=== PATIENT | female | born 1935 | race Caucasian/White ===

== ENCOUNTER 2017-12-04 16:05 | Inpatient (IN) | payer MEDICARE, BC ==
[~2017-12-04] VITALS: Ht 162.6 cm; Wt 76.7 kg
[2017-12-04 16:54] LABS: BASOPHILS % (AUTO) 0.5 % (0.0-2.0); EOSINOPHILS % (AUTO) 0.5 % (0.0-7.0); HEMATOCRIT 41.6 % (31.2-41.9); LYMPHOCYTES # (AUTO) 1.3 K/uL (20.0-40.0); LYMPHOCYTES % (AUTO) 16.6 % (20.5-51.5); MEAN CORPUSCULAR HEMOGLOBIN 30.5 uug (24.7-32.8); MEAN CORPUSCULAR HGB CONC 34 g/dL (32.3-35.6); MEAN CORPUSCULAR VOLUME 90.7 fL (75.5-95.3); MONOCYTES # (AUTO) 0.4 K/uL (2.0-10.0); MONOCYTES % (AUTO) 5.2 % (0.0-11.0); NEUTROPHILS # (AUTO) 6.2 K/uL (1.8-8.9); NEUTROPHILS % (AUTO) 77.2 % (38.5-71.5); PLATELET COUNT (AUTO) 220 K/uL (179-408); RED BLOOD CELL COUNT(AUTO) 4.59 MIL/uL (3.63-4.92); WHITE BLOOD COUNT (AUTO) 8.1 K/uL (3.8-11.8)
[2017-12-04 17:04] LABS: CARBON DIOXIDE 30 mmol/L (21-32); CHLORIDE 105 mmol/L (98-107); CREATININE 1.1 mg/dL (0.6-1.3); GLUCOSE 110 mg/dL (74-106); POTASSIUM 3.7 mmol/L (3.5-5.1); UREA NITROGEN, BLOOD 19 mg/dL (7-18)
[2017-12-04 17:12] LABS: ETHANOL < 3 MG/DL (0-0)
[2017-12-04 17:13] LABS: ALANINE AMINOTRANSFERASE 23 U/L (14-59); ALKALINE PHOSPHATASE 92 U/L (50-136); ASPARTATE AMINOTRANSFERASE 20 U/L (15-37); BILIRUBIN,DIRECT 0.1 mg/dL (0.0-0.2); BILIRUBIN,TOTAL 0.5 mg/dL (0.2-1.0); TOTAL PROTEIN, SERUM 7.7 g/dL (6.4-8.2)
[2017-12-04 17:16] LABS: ACETAMINOPHEN < 2.0 ug/mL (10-30)
[2017-12-04 17:18] LABS: THYROID STIMULATING HORMONE 1.306 mIU/mL (0.358-3.740)
[2017-12-04] MEDS ORDERED: diphenhydrAMINE 50 MG/1 ML VIAL IM ONE (17:30)
[2017-12-04] MEDS ORDERED: HALOPERIDOL LACTATE 5 MG/1 ML VIAL IM ONE (17:30)
[2017-12-04] MEDS ORDERED: LORAZEPAM 2 MG/1 ML VIAL IM ONE (17:30)
[2017-12-04] MEDS ORDERED: MAGNESIUM HYDROXIDE 30 ML LIQUID UDC PO PRN (18:45)
[2017-12-04] MEDS ORDERED: LORAZEPAM 0.5 MG TABLET PO PRN (18:45)
[2017-12-04] MEDS ORDERED: MAG HYDROX/AL HYDROX/SIMETH 30 ML LIQUID UDC PO PRN (18:45)
[2017-12-04] MEDS ORDERED: ACETAMINOPHEN 325 MG TABLET PO PRN (18:45)
[2017-12-04] MEDS ORDERED: OLANZAPINE 10 MG VIAL IM ONE (21:00)
[2017-12-04] MEDS: CLONIDINE-TTS 1 PATCH TD SCH (22:09)
[2017-12-04] MEDS ORDERED: CLONIDINE-TTS 1 PATCH TD ONE (22:22)
[2017-12-04 23:43] LABS: *BILIRUBIN,URIN NEGATIVE (NEGATIVE); *BLOOD, URINE 2+ (NEGATIVE); *CLARITY,URINE CLOUDY (CLEAR); *COLOR,URINE YELLOW (YELLOW); *KETONES,URINE NEGATIVE (NEGATIVE); *PROTEIN,URINE TRACE (NEGATIVE); *UROBILINOGEN,URINE 0.2 E.U./dl (NORMAL); LEUKOCYTE ESTERASE ,URINE 2+ (NEGATIVE); NITRITE, URINE POSITIVE (NEGATIVE); PH,URINE 6.5 (5.0-8.0); UGLUCOSE NEGATIVE (NEGATIVE)
[2017-12-04 23:46] LABS: RBC,URINE 20-50 /HPF (0-3)
[2017-12-04 23:47] LABS: BACTERIA,URINE MANY /HPF (NONE SEEN); SQUAMOUS EPITHELIAL CELL,UR FEW /HPF (NONE SEEN); WBC,URINE 80-100 /HPF (0-3)
[2017-12-04 23:52] LABS: *AMPHETAMINE, URINE NEGATIVE (NEGATIVE); *BARBITURATE, URINE NEGATIVE (NEGATIVE); *CANNABINOID, URINE NEGATIVE (NEGATIVE); *COCCAINE, URINE NEGATIVE (NEGATIVE); *OPIATE, URINE NEGATIVE (NEGATIVE); *PHENCYCLIDINE SCREEN,URINE NEGATIVE (NEGATIVE)
[2017-12-05] MEDS: TEMAZEPAM 7.5 MG CAPSULE PO PRN ×2 (00:56→22:31)
[2017-12-05] MEDS ORDERED: TEMAZEPAM 7.5 MG CAPSULE ONE (01:00)
[2017-12-05 08:00] VITALS: BP 155/60
[2017-12-05] MEDS: SULFAMETH/TRIMETH 800/160 MG TABLET PO SCH ×2 (11:17→20:15)
[2017-12-05] MEDS: DIVALPROEX SPRINKLE 125 MG CAP.SPRINK PO SCH ×2 (12:22→20:15)
[2017-12-05] MEDS: LORAZEPAM 0.5 MG TABLET PO PRN (13:30)
[2017-12-05] MEDS ORDERED: MELO-107 PO (14:39)
[2017-12-05] MEDS ORDERED: FURO-152 PO (14:39)
[2017-12-05] MEDS ORDERED: GABA300C PO (14:39)
[2017-12-05] MEDS ORDERED: LISI-607 PO (14:39)
[2017-12-05 16:00] VITALS: BP 136/73
[2017-12-05] MEDS: OLANZAPINE ZYDIS 5 MG TAB.RAPDIS PO SCH (17:03)
[2017-12-05 20:22] VITALS: BP 163/73
[2017-12-06] MEDS: LORAZEPAM 0.5 MG TABLET PO PRN (00:28)
[2017-12-06] MEDS: DIVALPROEX SPRINKLE 125 MG CAP.SPRINK PO SCH ×3 (09:00→20:04)
[2017-12-06] MEDS: OLANZAPINE ZYDIS 5 MG TAB.RAPDIS PO SCH ×3 (09:00→20:04)
[2017-12-06] MEDS: SULFAMETH/TRIMETH 800/160 MG TABLET PO SCH ×3 (09:00→20:04)
[2017-12-06 20:00] VITALS: BP 139/61
[2017-12-07] MEDS: TEMAZEPAM 7.5 MG CAPSULE PO PRN (00:54)
[2017-12-07 07:30] VITALS: BP 157/62
[2017-12-07] MEDS ORDERED: Medication Not On Formulary EA (Meloxicam 15 MG) PO SCH (09:00)
[2017-12-07] MEDS: LISINOPRIL 5 MG TABLET PO SCH (09:32)
[2017-12-07] MEDS: DIVALPROEX SPRINKLE 125 MG CAP.SPRINK PO SCH ×2 (09:34→20:04)
[2017-12-07] MEDS: SULFAMETH/TRIMETH 800/160 MG TABLET PO SCH ×2 (09:34→20:04)
[2017-12-07] MEDS: OLANZAPINE ZYDIS 5 MG TAB.RAPDIS PO SCH ×2 (09:34→20:03)
[2017-12-07] MEDS: FUROSEMIDE 20 MG TABLET PO SCH (09:35)
[2017-12-07] MEDS: MELOXICAM 7.5 MG TABLET PO SCH (09:39)
[2017-12-07 15:00] VITALS: BP 121/61
[2017-12-07] MEDS: GABAPENTIN 300 MG CAPSULE PO SCH (17:32)
[2017-12-07] MEDS: LORAZEPAM 0.5 MG TABLET PO PRN (20:04)
[2017-12-07 20:21] VITALS: BP 152/56
[2017-12-08 07:30] VITALS: BP 146/45
[2017-12-08] MEDS: SULFAMETH/TRIMETH 800/160 MG TABLET PO SCH ×2 (08:34→22:22)
[2017-12-08] MEDS: GABAPENTIN 300 MG CAPSULE PO SCH (08:34)
[2017-12-08] MEDS: DIVALPROEX SPRINKLE 125 MG CAP.SPRINK PO SCH ×2 (08:35→22:22)
[2017-12-08] MEDS: OLANZAPINE ZYDIS 5 MG TAB.RAPDIS PO SCH ×2 (08:35→22:23)
[2017-12-08] MEDS: FUROSEMIDE 20 MG TABLET PO SCH (08:35)
[2017-12-08] MEDS: LISINOPRIL 5 MG TABLET PO SCH (08:35)
[2017-12-08] MEDS: MELOXICAM 7.5 MG TABLET PO SCH (08:36)
[2017-12-08 15:27] VITALS: BP 95/46
[2017-12-08 20:55] VITALS: BP 119/43
[2017-12-09 07:30] VITALS: BP 137/51
[2017-12-09] MEDS: DIVALPROEX SPRINKLE 125 MG CAP.SPRINK PO SCH ×2 (08:02→17:00)
[2017-12-09] MEDS: GABAPENTIN 300 MG CAPSULE PO SCH (08:02)
[2017-12-09] MEDS: MELOXICAM 7.5 MG TABLET PO SCH (08:03)
[2017-12-09] MEDS: FUROSEMIDE 20 MG TABLET PO SCH (08:03)
[2017-12-09] MEDS: LISINOPRIL 5 MG TABLET PO SCH (08:03)
[2017-12-09] MEDS: SULFAMETH/TRIMETH 800/160 MG TABLET PO SCH ×2 (08:03→21:27)
[2017-12-09] MEDS: OLANZAPINE ZYDIS 5 MG TAB.RAPDIS PO SCH ×2 (08:03→21:27)
[2017-12-09] MEDS: LORAZEPAM 0.5 MG TABLET PO PRN (13:55)
[2017-12-09 15:36] VITALS: BP 95/45
[2017-12-09 20:41] VITALS: BP 189/96
[2017-12-09 21:30] VITALS: BP 150/68
[2017-12-09 21:40] VITALS: BP 150/68
[2017-12-10 07:30] VITALS: BP 164/54
[2017-12-10] MEDS: DIVALPROEX SPRINKLE 125 MG CAP.SPRINK PO SCH ×3 (08:49→16:51)
[2017-12-10] MEDS: MELOXICAM 7.5 MG TABLET PO SCH (08:50)
[2017-12-10] MEDS: GABAPENTIN 300 MG CAPSULE PO SCH (08:50)
[2017-12-10] MEDS: LISINOPRIL 5 MG TABLET PO SCH (08:50)
[2017-12-10] MEDS: FUROSEMIDE 20 MG TABLET PO SCH (08:51)
[2017-12-10] MEDS: SULFAMETH/TRIMETH 800/160 MG TABLET PO SCH ×2 (08:51→20:04)
[2017-12-10] MEDS: OLANZAPINE 2.5 MG TABLET PO SCH ×3 (08:58→20:04)
[2017-12-10] MEDS ORDERED: OLANZAPINE ZYDIS 5 MG TAB.RAPDIS PO SCH ×2 (09:00→21:00)
[2017-12-10 15:29] VITALS: BP 104/45
[2017-12-10] MEDS: LORAZEPAM 0.5 MG TABLET PO PRN (15:42)
[2017-12-10 20:43] VITALS: BP 129/55
[2017-12-11 07:07] LABS: BASOPHILS % (AUTO) 0.5 % (0.0-2.0); EOSINOPHILS # (AUTO) 0.2 K/uL (0.0-0.7); EOSINOPHILS % (AUTO) 2.4 % (0.0-7.0); HEMATOCRIT 41.6 % (31.2-41.9); HEMOGLOBIN 14.1 g/dL (10.9-14.3); LYMPHOCYTES # (AUTO) 1.6 K/uL (20.0-40.0); LYMPHOCYTES % (AUTO) 20.1 % (20.5-51.5); MEAN CORPUSCULAR HEMOGLOBIN 30.5 uug (24.7-32.8); MEAN CORPUSCULAR HGB CONC 34 g/dL (32.3-35.6); MEAN CORPUSCULAR VOLUME 90.3 fL (75.5-95.3); MONOCYTES # (AUTO) 0.5 K/uL (2.0-10.0); MONOCYTES % (AUTO) 5.8 % (0.0-11.0); NEUTROPHILS # (AUTO) 5.7 K/uL (1.8-8.9); NEUTROPHILS % (AUTO) 71.2 % (38.5-71.5); PLATELET COUNT (AUTO) 193 K/uL (179-408); RED BLOOD CELL COUNT(AUTO) 4.61 MIL/uL (3.63-4.92)
[2017-12-11 07:30] VITALS: BP 163/66
[2017-12-11 08:01] LABS: ALANINE AMINOTRANSFERASE 31 U/L (14-59); ALKALINE PHOSPHATASE 78 U/L (50-136); ASPARTATE AMINOTRANSFERASE 37 U/L (15-37); BILIRUBIN,TOTAL 0.4 mg/dL (0.2-1.0); CARBON DIOXIDE 29 mmol/L (21-32); CHLORIDE 108 mmol/L (98-107); CREATININE 1.5 mg/dL (0.6-1.3); GLUCOSE 116 mg/dL (74-106); MAGNESIUM 2.3 mg/dL (1.8-2.4); PHOSPHOROUS 3.7 mg/dL (2.5-4.9); TOTAL PROTEIN, SERUM 7.2 g/dL (6.4-8.2); UREA NITROGEN, BLOOD 46 mg/dL (7-18)
[2017-12-11] MEDS: DIVALPROEX SPRINKLE 125 MG CAP.SPRINK PO SCH ×3 (09:06→17:58)
[2017-12-11] MEDS: LORAZEPAM 0.5 MG TABLET PO PRN (09:07)
[2017-12-11] MEDS: LISINOPRIL 5 MG TABLET PO SCH (09:07)
[2017-12-11] MEDS: FUROSEMIDE 20 MG TABLET PO SCH (09:07)
[2017-12-11] MEDS: GABAPENTIN 300 MG CAPSULE PO SCH (09:07)
[2017-12-11] MEDS: OLANZAPINE 2.5 MG TABLET PO SCH ×3 (09:07→21:00)
[2017-12-11] MEDS: MELOXICAM 7.5 MG TABLET PO SCH (09:07)
[2017-12-11] MEDS ORDERED: CLONIDINE HCL 0.1 MG TABLET PO PRN (10:00)
[2017-12-11 16:49] VITALS: BP 119/56
[2017-12-11 20:00] VITALS: BP 110/59
[2017-12-11] MEDS: CLONIDINE-TTS 1 PATCH TD SCH (22:00)
[2017-12-12] MEDS: CLONIDINE-TTS 1 PATCH TD SCH (06:27)
[2017-12-12] MEDS ORDERED: Z GUARD REMEDY PASTE 57 GM TUBE TOP PRN (07:45)
[2017-12-12 08:00] VITALS: BP 124/46
[2017-12-12 08:52] LABS: CARBON DIOXIDE 24 mmol/L (21-32); CHLORIDE 109 mmol/L (98-107); CREATININE 2.8 mg/dL (0.6-1.3); GLUCOSE 103 mg/dL (74-106); POTASSIUM 5.1 mmol/L (3.5-5.1); UREA NITROGEN, BLOOD 68 mg/dL (7-18)
[2017-12-12] MEDS: MELOXICAM 7.5 MG TABLET PO SCH (09:34)
[2017-12-12] MEDS: LISINOPRIL 5 MG TABLET PO SCH (09:35)
[2017-12-12] MEDS: FUROSEMIDE 20 MG TABLET PO SCH (09:35)
[2017-12-12] MEDS: GABAPENTIN 300 MG CAPSULE PO SCH (09:35)
[2017-12-12] MEDS: OLANZAPINE 2.5 MG TABLET PO SCH ×3 (09:35→21:04)
[2017-12-12] MEDS: DIVALPROEX SPRINKLE 125 MG CAP.SPRINK PO SCH ×2 (09:36→17:29)
[2017-12-12] MEDS: Z GUARD REMEDY PASTE 57 GM TUBE TOP SCH ×2 (09:42→21:11)
[2017-12-12] MEDS ORDERED: IV 1/2NS 1000 ML 1,000 ML IV PRN (11:15)
[2017-12-12 16:00] VITALS: BP 101/36
[2017-12-12 20:38] VITALS: BP 113/55
[2017-12-13 07:30] VITALS: BP 100/42
[2017-12-13 07:54] LABS: *BILIRUBIN,URIN NEGATIVE (NEGATIVE); *BLOOD, URINE Trace-intact (NEGATIVE); *CLARITY,URINE SLIGHTLY CLOUDY (CLEAR); *COLOR,URINE YELLOW (YELLOW); *KETONES,URINE NEGATIVE (NEGATIVE); *PROTEIN,URINE NEGATIVE (NEGATIVE); *UROBILINOGEN,URINE 0.2 E.U./dl (NORMAL); LEUKOCYTE ESTERASE ,URINE NEGATIVE (NEGATIVE); NITRITE, URINE NEGATIVE (NEGATIVE); PH,URINE 5.5 (5.0-8.0); UGLUCOSE NEGATIVE (NEGATIVE)
[2017-12-13 07:57] LABS: BASOPHILS # (AUTO) 0.1 K/uL (0.0-8.0); BASOPHILS % (AUTO) 0.5 % (0.0-2.0); EOSINOPHILS # (AUTO) 0.1 K/uL (0.0-0.7); EOSINOPHILS % (AUTO) 1.1 % (0.0-7.0); LYMPHOCYTES % (AUTO) 16.4 % (20.5-51.5); MEAN CORPUSCULAR HGB CONC 33 g/dL (32.3-35.6); MONOCYTES # (AUTO) 0.8 K/uL (2.0-10.0); MONOCYTES % (AUTO) 6.8 % (0.0-11.0); NEUTROPHILS # (AUTO) 9.1 K/uL (1.8-8.9); NEUTROPHILS % (AUTO) 75.2 % (38.5-71.5); RED BLOOD CELL COUNT(AUTO) 4.14 MIL/uL (3.63-4.92)
[2017-12-13 08:10] LABS: WHITE BLOOD COUNT (AUTO) 12.1 K/uL (3.8-11.8)
[2017-12-13 08:11] LABS: HEMATOCRIT 37.2 % (31.2-41.9); HEMOGLOBIN 12.4 g/dL (10.9-14.3); PLATELET COUNT (AUTO) 142 K/uL (179-408)
[2017-12-13 08:14] LABS: ALANINE AMINOTRANSFERASE 51 U/L (14-59); ALKALINE PHOSPHATASE 64 U/L (50-136); ASPARTATE AMINOTRANSFERASE 109 U/L (15-37); BILIRUBIN,TOTAL 0.6 mg/dL (0.2-1.0); CARBON DIOXIDE 26 mmol/L (21-32); CHLORIDE 107 mmol/L (98-107); CREATININE 2.8 mg/dL (0.6-1.3); GLUCOSE 107 mg/dL (74-106); MAGNESIUM 2.7 mg/dL (1.8-2.4); PHOSPHOROUS 4.2 mg/dL (2.5-4.9); POTASSIUM 4.9 mmol/L (3.5-5.1); TOTAL PROTEIN, SERUM 6.1 g/dL (6.4-8.2)
[2017-12-13 08:45] LABS: CREATINE KINASE, TOTAL > 1000 U/L (26-192); UREA NITROGEN, BLOOD 88 mg/dL (7-18)
[2017-12-13] MEDS ORDERED: LEVOFLOXACIN/D5W 250 MG in PREMIX 1 EA IV ONE (09:00)
[2017-12-13 09:36] LABS: BACTERIA,URINE NONE SEEN /HPF (NONE SEEN); SQUAMOUS EPITHELIAL CELL,UR MODERATE /HPF (NONE SEEN); URIC ACID CRYSTALS,URINE MANY /HPF (NONE SEEN)
[2017-12-13 09:37] LABS: MUCUS,URINE FEW /LPF (0-FEW)
[2017-12-13] MEDS: GABAPENTIN 300 MG CAPSULE PO SCH (09:51)
[2017-12-13] MEDS: OLANZAPINE 2.5 MG TABLET PO SCH (09:51)
[2017-12-13] MEDS: FUROSEMIDE 20 MG TABLET PO SCH (09:51)
[2017-12-13] MEDS: Z GUARD REMEDY PASTE 57 GM TUBE TOP SCH (09:52)
[2017-12-13] MEDS: DIVALPROEX SPRINKLE 125 MG CAP.SPRINK PO SCH (09:56)
[2017-12-13] MEDS ORDERED: HEPARIN SODIUM,PORCINE 5,000 UNITS/ML VIAL SQ SCH (11:15)
[2017-12-13] MEDS ORDERED: IV NS 1000 ML 1,000 ML IV PRN (11:15)
[2017-12-13] MEDS ORDERED: CEFTRIAXONE 1 G in IV NORMAL SALINE 50 ML IV SCH (12:00)
[2017-12-13] MEDS ORDERED: HEPA100D33 SQ (17:23)
[2017-12-13] MEDS ORDERED: MAGN400O6 PO (17:23)
[2017-12-13] MEDS ORDERED: GABA-534 PO (17:23)
[2017-12-13] MEDS ORDERED: CLON-418 PO (17:23)
[2017-12-13] MEDS ORDERED: DIVA250T6 PO (17:23)
[2017-12-13] MEDS ORDERED: PETR113P TP (17:23)
[2017-12-13] MEDS ORDERED: TEMA7.5C PO (17:23)
[2017-12-13] MEDS ORDERED: MAG-55 PO (17:23)
[2017-12-13] MEDS ORDERED: LORA-259 PO (17:23)
[2017-12-13] MEDS ORDERED: OLAN2.5T3 PO ×2 (17:23)
[2017-12-15] MEDS ORDERED: LEVOFLOXACIN 250MG /D5W 250 MG in PREMIXED 1 EACH IV SCH (09:00)
[2017-12-17 05:06] LABS: ALBUMIN 2.8 g/dL (2.9-4.4); ALPHA-1-GLOBULIN 0.3 g/dL (0.0-0.4); ALPHA-2-GLOBULIN 0.9 g/dL (0.4-1.0); BETA GLOBULIN 0.9 g/dL (0.7-1.3); GAMMA GLOBULIN 0.7 g/dL (0.4-1.8); GLOBULIN, TOTAL 2.7 g/dL (2.2-3.9); M-SPIKE Not Observed g/dL (Not Observed)
== END 2017-12-13 14:00 | disposition short-term general hospital (02) | DRG 885 ==
LOC: ER 16:06 → GPS 17:32
PROVIDERS: ADMIT Psychiatry & Neurology Psychiatry; ATTEND Nurse Practitioner Acute Care
DX: F23 Brief psychotic disorder (principal); F02.81 Dementia in other diseases classified elsewhere, unspecified severity, with behavioral disturbance; I11.0 Hypertensive heart disease with heart failure; N17.0 Acute kidney failure with tubular necrosis; G93.41 Metabolic encephalopathy; E44.0 Moderate protein-calorie malnutrition; D69.6 Thrombocytopenia, unspecified; E83.41 Hypermagnesemia; I50.32 Chronic diastolic (congestive) heart failure; I82.441 Acute embolism and thrombosis of right tibial vein; N39.0 Urinary tract infection, site not specified; M62.82 Rhabdomyolysis; J98.11 Atelectasis; E86.0 Dehydration; B96.1 Klebsiella pneumoniae [K. pneumoniae] as the cause of diseases classified elsewhere; G31.83 Neurocognitive disorder with Lewy bodies; Z79.899 Other long term (current) drug therapy; T39.395A Adverse effect of other nonsteroidal anti-inflammatory drugs [NSAID], initial encounter; T46.4X5A Adverse effect of angiotensin-converting-enzyme inhibitors, initial encounter; Y92.009 Unspecified place in unspecified non-institutional (private) residence as the place of occurrence of the external cause; Z68.29 Body mass index [BMI] 29.0-29.9, adult; E66.9 Obesity, unspecified
CPT/HCPCS: 36415; 70030-TC; 71045; 76770; 80164; 80307; 83605; 83735; 83970; 84100; 84155; 84165; 84443; 85025; 85730; 87040; 87077; 87086; 93005; 97110; 97116; A4663; G0480; G0480-TC; J0696; J1956; J2358; J3490; J7030

== ENCOUNTER 2017-12-13 15:58 | Inpatient (IN) | payer MEDICARE, BC ==
[~2017-12-13] VITALS: Ht 162.6 cm; Wt 76.7 kg
--- NOTE | 2017-12-13 14:00 | NUR ---
pt received from u. report received. pt sleeping interminently. no signs of pain nor distress. no injuries noted. signs confusion seen when awake. all pertinent assessments done. belongings list reconciled. iv site intact. awaiting designer/writer orders.
[~2017-12-13 15:58] MED LIST: FURO-152 PO; GABA300C PO; LISI-607 PO; MELO-107 PO
[2017-12-13 16:04] VITALS: BP 98/44
[2017-12-13] MEDS ORDERED: ONDANSETRON 4 MG/2 ML VIAL IV PRN (17:00)
[2017-12-13] MEDS ORDERED: Z GUARD REMEDY PASTE 57 GM TUBE TOP PRN (17:00)
[2017-12-13] MEDS ORDERED: MAGNESIUM HYDROXIDE 30 ML LIQUID UDC PO PRN (17:00)
[2017-12-13] MEDS ORDERED: ACETAMINOPHEN 325 MG TABLET PO PRN (17:00)
[2017-12-13] MEDS ORDERED: DIVA250T6 PO (17:23)
[2017-12-13] MEDS ORDERED: MAG-55 PO (17:23)
[2017-12-13] MEDS ORDERED: OLAN2.5T3 PO ×2 (17:23)
[2017-12-13] MEDS ORDERED: MAGN400O6 PO (17:23)
[2017-12-13] MEDS ORDERED: HEPA100D33 SQ (17:23)
[2017-12-13] MEDS ORDERED: TEMA7.5C PO (17:23)
[2017-12-13] MEDS ORDERED: PETR113P TP (17:23)
[2017-12-13] MEDS ORDERED: CLON-418 PO (17:23)
[2017-12-13] MEDS ORDERED: LORA-259 PO (17:23)
[2017-12-13] MEDS ORDERED: GABA-534 PO (17:23)
[2017-12-13] MEDS: IV NS 1000 ML 1,000 ML IV PRN (18:23)
[2017-12-13] MEDS: APIXABAN 5 MG TABLET PO SCH (18:41)
[2017-12-13] MEDS: CEFTRIAXONE 1 G in IV DEXTROSE 5% 50 ML IV SCH (18:44)
--- NOTE | 2017-12-13 18:52 | NUR ---
pt stable throuhgout the day. vitals stable. no complaints of pain. pt continues to sleep interminently . iv site intact running fluids and antibiotics. eliquis given. will endorse to scene shifter nurse.
[2017-12-13] MEDS ORDERED: TEMAZEPAM 7.5 MG CAPSULE PO PRN (19:45)
[2017-12-13 20:00] VITALS: BP_SYST 120; BP_SYST 130; BP_DIAS 48; BP_DIAS 68
--- NOTE | 2017-12-13 20:00 | NUR ---
RECEIVED PT AWAKE IN BED, SHE'S ALERT WITH CONFUSION AND UNABLE TO STATE HER NEEDS. NO S/S OF PAIN OR DISCOMFORT. IV FLUIDS INFUSING ORDERED. ALL SAFETY MEASURES IN PLACE, CALL LIGHT PLACED WITHIN PT'S REACH. WILL CONTINUE TO MONITOR PT
[2017-12-13] MEDS: OLANZAPINE 2.5 MG TABLET PO SCH (21:01)
[2017-12-14 04:00] VITALS: BP 132/58
[2017-12-14 06:39] LABS: BASOPHILS # (AUTO) 0.1 K/uL (0.0-8.0); BASOPHILS % (AUTO) 0.6 % (0.0-2.0); EOSINOPHILS # (AUTO) 0.3 K/uL (0.0-0.7); EOSINOPHILS % (AUTO) 3.3 % (0.0-7.0); HEMATOCRIT 38.4 % (31.2-41.9); HEMOGLOBIN 12.8 g/dL (10.9-14.3); LYMPHOCYTES # (AUTO) 1.7 K/uL (20.0-40.0); LYMPHOCYTES % (AUTO) 19.3 % (20.5-51.5); MEAN CORPUSCULAR HEMOGLOBIN 30.2 uug (24.7-32.8); MEAN CORPUSCULAR HGB CONC 34 g/dL (32.3-35.6); MEAN CORPUSCULAR VOLUME 90.1 fL (75.5-95.3); MONOCYTES # (AUTO) 0.6 K/uL (2.0-10.0); MONOCYTES % (AUTO) 6.6 % (0.0-11.0); NEUTROPHILS # (AUTO) 6.1 K/uL (1.8-8.9); NEUTROPHILS % (AUTO) 70.2 % (38.5-71.5); PLATELET COUNT (AUTO) 147 K/uL (179-408); RED BLOOD CELL COUNT(AUTO) 4.26 MIL/uL (3.63-4.92); WHITE BLOOD COUNT (AUTO) 8.7 K/uL (3.8-11.8)
--- NOTE | 2017-12-14 06:46 | NUR ---
PT IS ASLEEP WITH NO S/S OF PAIN OR DISCOMFORT.PT IS CONFUSED SHE PULLED OUT HER IV, NEW IV WAS INSERTED PATENT AND INTACT RUNNING FLUIDS PER MD ORDERS. SHE SLEPT WELL THROUGH NIGHT
[2017-12-14 07:34] LABS: ALANINE AMINOTRANSFERASE 45 U/L (14-59); ALKALINE PHOSPHATASE 67 U/L (50-136); ASPARTATE AMINOTRANSFERASE 70 U/L (15-37); BILIRUBIN,TOTAL 0.4 mg/dL (0.2-1.0); CARBON DIOXIDE 26 mmol/L (21-32); CHLORIDE 109 mmol/L (98-107); CHOLESTEROL 166 mg/dL (<200); CREATININE 1.8 mg/dL (0.6-1.3); GLUCOSE 96 mg/dL (74-106); HDL CHOLESTEROL 49 mg/dL (40-60); MAGNESIUM 2.7 mg/dL (1.8-2.4); PHOSPHOROUS 3.8 mg/dL (2.5-4.9); POTASSIUM 4.7 mmol/L (3.5-5.1); TOTAL PROTEIN, SERUM 6.5 g/dL (6.4-8.2); TRIGLYCERIDES 126 MG/DL (30-150)
[2017-12-14 07:41] LABS: UREA NITROGEN, BLOOD 84 mg/dL (7-18)
--- NOTE | 2017-12-14 08:00 | NUR ---
AWAKE ALERT BUT VERY CONFUSED AND INCOHERENT, REQUIRES CONSTANT SUPERVISION FOR SAFETY
[2017-12-14] MEDS: GABAPENTIN 300 MG CAPSULE PO SCH (08:35)
[2017-12-14] MEDS: OLANZAPINE 2.5 MG TABLET PO SCH ×3 (08:36→20:11)
[2017-12-14] MEDS: DIVALPROEX 250 MG TABLET.DR PO SCH ×2 (08:36→17:04)
[2017-12-14] MEDS: APIXABAN 5 MG TABLET PO SCH ×2 (08:38→17:05)
[2017-12-14] MEDS ORDERED: GABAPENTIN 300 MG CAPSULE PO SCH (09:00)
[2017-12-14] MEDS ORDERED: FUROSEMIDE 20 MG TABLET PO SCH (09:00)
--- NOTE | 2017-12-14 09:30 | NUR ---
SEEN BY DR BUCIO FOR PSYCH FOLLOW-UP SEE NOTES
[2017-12-14] MEDS: IV NS 1000 ML 1,000 ML IV PRN (10:23)
[2017-12-14 10:49] VITALS: BP 145/64
--- NOTE | 2017-12-14 12:43 | NUR ---
SEEN BY DR SALAMANCA FOR MEDICAL FOLLOW-UP SEE NOTES. CLOSELY MONITORED FOR CONFUSION/SAFETY
[2017-12-14 15:06] VITALS: BP 155/60
--- NOTE | 2017-12-14 15:11 | NUR ---
2DECHO DONE WITH EF OF 60
[2017-12-14] MEDS: CEFTRIAXONE 1 G in IV DEXTROSE 5% 50 ML IV SCH (17:03)
[2017-12-14 19:00] VITALS: BP 155/53
--- NOTE | 2017-12-14 19:45 | NUR ---
RECEIVED PATIENT AWAKE. PATIENT PULLED OUT IV HEPLOCK. ALERT TO SELF ONLY. CONFUSED AND DISORIENTED BUT PLEASANT WHEN APPROACHED. UNAWARE OF PULLING OUT IV, UNABLE TO COMPREHEND. PATIENT DENIES PAIN OR DISCOMFORT. NO RESP. DISTRESS NOTED. BP 155/53. ALL OTHER VSS. WILL RECHECK AND MONITOR BP. BED ALARM ON. CALL LIGHT IN REACH. ALL NEEDS ATTENDED. WILL CONTINUE TO MONITOR.
[2017-12-14] MEDS: LORAZEPAM 1 MG TABLET PO PRN (20:12)
[2017-12-14 22:15] VITALS: BP 135/64
[2017-12-15 04:00] VITALS: BP 144/56
[2017-12-15] MEDS: IV NS 1000 ML 1,000 ML IV PRN ×2 (05:48→22:37)
--- NOTE | 2017-12-15 06:53 | NUR ---
PATIENT ASLEEP IN BED. SLEPT AT INTERVALS. IVF INFUSING WELL TO LEFT AC #20 GAUGE. VSS. NO S/S OF PAIN OR DISCOMFORT. NO RESP. DISTRESS NOTED. BED ALARM ON. CALL LIGHT IN REACH. ALL NEEDS ATTENDED. WILL CONTINUE TO MONITOR AND ASSESS.
[2017-12-15 07:22] LABS: BASOPHILS % (AUTO) 0.6 % (0.0-2.0); EOSINOPHILS # (AUTO) 0.2 K/uL (0.0-0.7); EOSINOPHILS % (AUTO) 2.4 % (0.0-7.0); HEMATOCRIT 39.5 % (31.2-41.9); HEMOGLOBIN 13.2 g/dL (10.9-14.3); LYMPHOCYTES # (AUTO) 1.2 K/uL (20.0-40.0); LYMPHOCYTES % (AUTO) 14.9 % (20.5-51.5); MEAN CORPUSCULAR HEMOGLOBIN 30.2 uug (24.7-32.8); MEAN CORPUSCULAR HGB CONC 34 g/dL (32.3-35.6); MEAN CORPUSCULAR VOLUME 90.2 fL (75.5-95.3); MONOCYTES # (AUTO) 0.5 K/uL (2.0-10.0); MONOCYTES % (AUTO) 6.4 % (0.0-11.0); NEUTROPHILS # (AUTO) 5.9 K/uL (1.8-8.9); NEUTROPHILS % (AUTO) 75.7 % (38.5-71.5); PLATELET COUNT (AUTO) 153 K/uL (179-408); RED BLOOD CELL COUNT(AUTO) 4.38 MIL/uL (3.63-4.92); WHITE BLOOD COUNT (AUTO) 7.9 K/uL (3.8-11.8)
[2017-12-15 07:35] LABS: ALANINE AMINOTRANSFERASE 47 U/L (14-59); ALKALINE PHOSPHATASE 74 U/L (50-136); ASPARTATE AMINOTRANSFERASE 71 U/L (15-37); BILIRUBIN,TOTAL 0.5 mg/dL (0.2-1.0); CARBON DIOXIDE 32 mmol/L (21-32); CHLORIDE 107 mmol/L (98-107); CREATININE 1.1 mg/dL (0.6-1.3); GLUCOSE 96 mg/dL (74-106); MAGNESIUM 2.4 mg/dL (1.8-2.4); POTASSIUM 4.4 mmol/L (3.5-5.1); TOTAL PROTEIN, SERUM 6.8 g/dL (6.4-8.2); UREA NITROGEN, BLOOD 44 mg/dL (7-18)
[2017-12-15] MEDS: DIVALPROEX 250 MG TABLET.DR PO SCH ×2 (08:11→17:36)
[2017-12-15] MEDS: GABAPENTIN 300 MG CAPSULE PO SCH (08:11)
[2017-12-15] MEDS: APIXABAN 5 MG TABLET PO SCH ×2 (08:11→17:37)
[2017-12-15] MEDS: OLANZAPINE 2.5 MG TABLET PO SCH ×3 (08:12→20:53)
[2017-12-15 08:16] LABS: CREATINE KINASE, TOTAL 2294 U/L (26-192)
--- NOTE | 2017-12-15 10:20 | NUR ---
Patient pulled out IV.
[2017-12-15 10:59] VITALS: BP 157/60
--- NOTE | 2017-12-15 11:00 | NUR ---
Midline insertion done. Patient tolerated procedure well.
[2017-12-15 15:04] VITALS: BP 141/54
--- NOTE | 2017-12-15 15:15 | NUR ---
Patient is agitated, refusing patient care, combative, screaming, pulling iv. Will administer PRN medication and call MD.
[2017-12-15] MEDS: LORAZEPAM 1 MG TABLET PO PRN (15:22)
[2017-12-15] MEDS: PANTOPRAZOLE SODIUM 40 MG TABLET.DR PO SCH (15:22)
[2017-12-15] MEDS: AMLODIPINE 5 MG TABLET PO SCH (15:23)
[2017-12-15] MEDS ORDERED: diphenhydrAMINE 50 MG/1 ML VIAL IM ONE (16:15)
[2017-12-15] MEDS ORDERED: HALOPERIDOL LACTATE 5 MG/1 ML VIAL IM ONE (16:15)
[2017-12-15] MEDS ORDERED: LORAZEPAM 2 MG/1 ML VIAL IM ONE (16:15)
[2017-12-15 19:00] VITALS: BP 150/69
--- NOTE | 2017-12-15 20:00 | NUR ---
RECEIVED PATIENT AWAKE IN BED. PATIENT IS ALERT TO SELF ONLY. VERY CONFUSED AND DISORIENTED. NEEDS FREQUENT REDIRECTION. BILATERAL MITTENS IN PLACE FOR SAFETY. PATIENT HAS NEW MID-LINE NOTED TO LEFT UPPER ARM WITH IVF INFUSING WELL. NO S/S OF PAIN OR DISCOMFORT. NO FACIAL GRIMACE NOTED. NO RESP.DISTRESS NOTED. VSS. BED ALARM ON. CALL LIGHT IN REACH. ALL NEEDS ATTENDED. WILL CONTINUE TO MONITOR AND ASSESS.
[2017-12-16 05:00] VITALS: BP 149/52
--- NOTE | 2017-12-16 06:06 | NUR ---
PATIENT ASLEEP IN BED. EASILY AROUSABLE. REPOSITIONED TO SIDE FOR PRESSURE RELIEF. MID-LINE INTACT AND IVF INFUSING WELL. PATIENT SLEPT WELL THROUGHOUT THE NIGHT. VSS. BED ALARM ON. CALL LIGHT IN REACH. ALL NEEDS ATTENDED. WILL CONTINUE TO MONITOR.
--- NOTE | 2017-12-16 06:30 | NUR ---
PATIENT ASLEEP IN BED. BILATERAL MITTENS REMOVED AT THIS TIME. PATIENT IS CALM AND COOPERATIVE WITH STAFF AND CARE. SITTER AT BEDSIDE FOR SAFETY. MITTENS RELEASED THROUGHOUT THE SHIFT FOR CIRCULATION AND SKIN ASSESSMENT. REPOSITIONED IN BED. BED ALARM ON. ALL NEEDS ATTENDED. WILL CONTINUE TO MONITOR.
[2017-12-16] MEDS: PANTOPRAZOLE SODIUM 40 MG TABLET.DR PO SCH (06:38)
[2017-12-16 08:21] LABS: BASOPHILS # (AUTO) 0.1 K/uL (0.0-8.0); BASOPHILS % (AUTO) 1.1 % (0.0-2.0); EOSINOPHILS # (AUTO) 0.3 K/uL (0.0-0.7); EOSINOPHILS % (AUTO) 3.4 % (0.0-7.0); HEMATOCRIT 36.5 % (31.2-41.9); HEMOGLOBIN 12.2 g/dL (10.9-14.3); LYMPHOCYTES # (AUTO) 1.6 K/uL (20.0-40.0); MEAN CORPUSCULAR HEMOGLOBIN 29.9 uug (24.7-32.8); MEAN CORPUSCULAR HGB CONC 33 g/dL (32.3-35.6); MEAN CORPUSCULAR VOLUME 89.4 fL (75.5-95.3); MONOCYTES # (AUTO) 0.6 K/uL (2.0-10.0); MONOCYTES % (AUTO) 6.5 % (0.0-11.0); NEUTROPHILS # (AUTO) 6.2 K/uL (1.8-8.9); PLATELET COUNT (AUTO) 165 K/uL (179-408); RED BLOOD CELL COUNT(AUTO) 4.08 MIL/uL (3.63-4.92); WHITE BLOOD COUNT (AUTO) 8.7 K/uL (3.8-11.8)
[2017-12-16 08:54] LABS: ALANINE AMINOTRANSFERASE 37 U/L (14-59); ALKALINE PHOSPHATASE 60 U/L (50-136); ASPARTATE AMINOTRANSFERASE 49 U/L (15-37); BILIRUBIN,TOTAL 0.6 mg/dL (0.2-1.0); CARBON DIOXIDE 26 mmol/L (21-32); CHLORIDE 111 mmol/L (98-107); CREATINE KINASE, TOTAL 943 U/L (26-192); CREATININE 0.9 mg/dL (0.6-1.3); GLUCOSE 88 mg/dL (74-106); MAGNESIUM 2.2 mg/dL (1.8-2.4); PHOSPHOROUS 3.2 mg/dL (2.5-4.9); POTASSIUM 4.8 mmol/L (3.5-5.1); TOTAL PROTEIN, SERUM 5.9 g/dL (6.4-8.2); UREA NITROGEN, BLOOD 36 mg/dL (7-18)
[2017-12-16 09:12] VITALS: BP 146/60
[2017-12-16] MEDS: DIVALPROEX 250 MG TABLET.DR PO SCH ×2 (09:14→17:24)
[2017-12-16] MEDS: OLANZAPINE 2.5 MG TABLET PO SCH ×3 (09:14→20:46)
[2017-12-16] MEDS: GABAPENTIN 300 MG CAPSULE PO SCH (09:14)
[2017-12-16] MEDS: AMLODIPINE 5 MG TABLET PO SCH (09:15)
[2017-12-16] MEDS: APIXABAN 5 MG TABLET PO SCH ×2 (09:16→17:25)
[2017-12-16 11:11] VITALS: BP 140/62
[2017-12-16] MEDS ORDERED: OLAN2.5T3 PO ×2 (11:49)
[2017-12-16] MEDS ORDERED: GABA-534 PO (11:49)
[2017-12-16] MEDS ORDERED: PANT40TA2 PO (11:49)
[2017-12-16] MEDS ORDERED: APIX5TAB PO (11:49)
[2017-12-16] MEDS ORDERED: AMLO5TAB2 PO (11:49)
[2017-12-16] MEDS ORDERED: ACET325T53 PO (11:49)
[2017-12-16] MEDS ORDERED: DIVA250T4 PO (11:49)
[2017-12-16 15:21] VITALS: BP 149/71
--- NOTE | 2017-12-16 15:45 | NUR ---
Patient's family did not agree for patient's discharge today at 1800. Patient's family spoke with case worker.
[2017-12-16] MEDS: LORAZEPAM 1 MG TABLET PO PRN (17:24)
[2017-12-16 20:00] VITALS: BP 110/62
--- NOTE | 2017-12-16 20:35 | NUR ---
PATIENT CALM AND COOPERATIVE, BILATERAL MITTEN REMOVED,1:1 SITTER AT BEDSIDE FOR SAFETY,FOOD AND FLUID OFFER,SKIN CARE PROVIDED,RESTORIL PO ADMIN FOR SLEEP.
--- NOTE | 2017-12-17 02:02 | NUR ---
PATIENT ASLEEP,CONTINUE CLOSELY MONITOR.
[2017-12-17 04:33] VITALS: BP 117/70
--- NOTE | 2017-12-17 04:42 | NUR ---
patient sleep well,no agitation noted,vital signs stable,bilateral mittens removed through out the shift,safety precautions maintain.
[2017-12-17] MEDS: PANTOPRAZOLE SODIUM 40 MG TABLET.DR PO SCH (06:01)
--- NOTE | 2017-12-17 07:45 | NUR ---
PATIENT IS IN BED AWAKE ALERT TO SELF HAS NO MITTENS AND NOT CONNECTED TO ANY LINES SO NO NEED FOR MITTENS AT THIS TIME WILL CONTINUE TO OBSERVE AND ACCESS THE NEED FOR MITTENS.
[2017-12-17] MEDS: DIVALPROEX 250 MG TABLET.DR PO SCH ×3 (08:50→13:02)
[2017-12-17] MEDS: GABAPENTIN 300 MG CAPSULE PO SCH ×2 (08:50→13:03)
[2017-12-17] MEDS: OLANZAPINE 2.5 MG TABLET PO SCH ×2 (08:50→09:00)
[2017-12-17] MEDS: AMLODIPINE 5 MG TABLET PO SCH ×3 (08:51→13:03)
[2017-12-17] MEDS: APIXABAN 5 MG TABLET PO SCH ×3 (08:54→13:02)
--- NOTE | 2017-12-17 09:15 | NUR ---
AWAKE ALERT TO SELF ONLY WITH CONFUSSION AND DISORIENTATION PATIENT REFUSED TO TAKE MEDICATIONS AND REFUSED TO EAT HER BREAKFAST DESPITE ENCOURAGEMENT AND ASSISTANCE WILL ATTEMPT LATER.
[2017-12-17] MEDS ORDERED: LORAZEPAM 2 MG/1 ML VIAL IV ONE (11:15)
--- NOTE | 2017-12-17 11:27 | NUR ---
PATIENT IS VERY AGITATED SCREAMING AND SCRATCHING DURING CARE UNABLE TO REDIRECT MD AWARE WITH ORDER TO GIVE HER ATIVAN GIVEN ORDERED AND WILL OBSERVE DISCHARGE PLANNING WILL BE PICKED UP ABOUT 1200 TO THE HEIGHTS IN [place].
[2017-12-17 13:03] VITALS: BP 137/50
--- NOTE | 2017-12-17 13:25 | NUR ---
PATIENT DISCHARGED PICKED UP BY MED RESPONSE ALERT TO SELF COOPERATIVE AND QUIET AT THIS TIME.MID LINE LEFT UPPER ARM REMOVED AND PRESSURE DRESSING APPLIED.ONLY BELONGINGS SEEN IS A WRIST WATCH AND PATIENT IS WEARING IT.DISCHARGED MAGI AMAYA IN SATISFACTORY CONDITION.
== END 2017-12-17 13:20 | disposition home health service (06) | DRG 682 ==
LOC: MED 15:58
PROVIDERS: ADMIT Internal Medicine; ATTEND Internal Medicine
DX: N17.0 Acute kidney failure with tubular necrosis (principal); G93.40 Encephalopathy, unspecified; E44.0 Moderate protein-calorie malnutrition; D69.6 Thrombocytopenia, unspecified; F03.91 Unspecified dementia, unspecified severity, with behavioral disturbance; E83.41 Hypermagnesemia; I11.0 Hypertensive heart disease with heart failure; I50.32 Chronic diastolic (congestive) heart failure; M62.82 Rhabdomyolysis; N39.0 Urinary tract infection, site not specified; F23 Brief psychotic disorder; I82.441 Acute embolism and thrombosis of right tibial vein; G47.9 Sleep disorder, unspecified; E78.5 Hyperlipidemia, unspecified; B96.1 Klebsiella pneumoniae [K. pneumoniae] as the cause of diseases classified elsewhere; F39 Unspecified mood [affective] disorder; E86.0 Dehydration; E66.3 Overweight; T39.395A Adverse effect of other nonsteroidal anti-inflammatory drugs [NSAID], initial encounter; T46.4X5A Adverse effect of angiotensin-converting-enzyme inhibitors, initial encounter; Y92.9 Unspecified place or not applicable
CPT/HCPCS: 36415; 83735; 84100; 85025; 93307; A4663; J0696; J1200; J1630; J2060; J3490; J7030; J7060